=== PATIENT | male | born 1985 | race Caucasian/White ===

== ENCOUNTER 2020-09-10 22:13 | Emergency (ER) | payer OTHER ==
[~2020-09-10] VITALS: Ht 175.3 cm; Wt 113.1 kg
[2020-09-10] MEDS ORDERED: TYLENOL EXTRA500 M2 PO (22:33)
[2020-09-10 23:43] LABS: EOS % 0.5 % (0.0-4.0); HEMATOCRIT 40.9 % (42.0-52.0); HEMOGLOBIN 12.3 g/dL (13.5-18.0); LYMPH# 1.3 (1.50-4.00); MEAN CELL VOLUME 98 fl (78-100); MEAN CORPUSCULAR HEMOGLOBIN 30 pg (27-31); MEAN CORPUSCULAR HGB CONC 30 g/dL (33-37); MEAN PLATELET VOLUME 11.7 fl (7.4-10.4); MONO # 0.7 (0.20-0.80); NEU # 4.5 (1.40-6.50); PLATELET COUNT 190 K/mm3 (130-400); RED BLOOD COUNT 4.17 M/mm3 (4.20-5.60); RED CELL DISTRIBUTION WIDTH 16.4 % (11.5-14.5); WHITE BLOOD COUNT 6.6 K/mm3 (4.8-10.8)
[2020-09-10 23:50] LABS: STREP SCREEN NEGATIVE (NEGATIVE)
[2020-09-11] MEDS ORDERED: DECADRON 4MG TAB4 MG PO (00:12)
[2020-09-11] MEDS ORDERED: NORCO 325 MG-51 TA1 PO (00:12)
[2020-09-11 00:43] VITALS: BP 138/78
== END 2020-09-11 00:43 | disposition home or self-care (01) ==
LOC: ED 22:13
PROVIDERS: Family Medicine
DX: J02.9 Acute pharyngitis, unspecified (principal); D64.9 Anemia, unspecified; Z20.828 Contact with and (suspected) exposure to other viral communicable diseases; Z79.1 Long term (current) use of non-steroidal anti-inflammatories (NSAID)